=== PATIENT | male | born 1930 | race African-American/Black ===

== ENCOUNTER 2018-10-26 02:52 | Emergency (ER) | payer MEDICARE ==
[2018-10-26] MEDS ORDERED: Lidocaine 1% w/Epinephrine 1:100K 20 ML VIAL ONE (03:22)
== END 2018-10-26 04:17 | disposition home or self-care (01) ==
LOC: ERS 02:52
DX: K05.00 Acute gingivitis, plaque induced (principal); I10 Essential (primary) hypertension
CPT/HCPCS: J2001

== ENCOUNTER 2018-10-26 18:40 | Emergency (ER) | payer MEDICARE ==
[2018-10-26 20:32] LABS: #Eosinphils 0.2 thou/uL (0.0-0.7); #Lymphocytes 0.7 thou/uL (1.20-3.40); #Monocytes 0.7 thou/uL (0.11-0.59); #Neutrophils 3.5 thou/uL (1.40-6.50); %Basophils 0.9 % (0.0-1.0); %Eosinophils 4.4 % (0.0-10.0); %Lymphocytes 14.3 % (21.0-51.0); %Monocytes 13.7 % (0.0-10.0); %Neutrophils 66.8 % (42.0-75.0); Hemoglobin 12.1 g/dL (14.0-18.0); Mean Corpuscular HGB CONC 32.6 g/dL (32.0-36.0); Mean Corpuscular Hemoglobin 27.5 pg (27.0-31.0); Mean Corpuscular Volume 84.5 fL (78.0-98.0); Mean Platelet Volume 7.3 fL (7.4-10.4); Platelet Count 331 thou/uL (130-400); RBC Distribution Width 14.4 % (11.5-14.5); White Blood Cell (WBC) Count 5.2 thou/uL (4.8-10.8)
[2018-10-26 20:38] LABS: PTT 38.7 SEC (22.9-36.1); Prothrombin Time 13.7 SEC (12.0-14.7)
[2018-10-26 20:48] LABS: ALT (SGPT) 17 U/L (8-55); AST (SGOT) 18 U/L (5-34); Albumin 3.8 g/dL (3.4-4.8); Alkaline Phosphatase 105 U/L (40-150); Anion Gap 8 mmol/L (10-20); BUN (Urea Nitrogen) 12 mg/dL (8.4-25.7); Bilirubin, Total 0.3 mg/dL (0.2-1.2); Calc. Creatinine Clearance 0 mL/min (70-130); Calcium 9.6 mg/dL (7.8-10.44); Carbon Dioxide 29 mmol/L (23-31); Chloride 107 mmol/L (98-107); Estimated GFR-MDRD Greater than 90; Globulin 3.5 g/dL (2.4-3.5); Glucose 99 mg/dL (83-110); Potassium 4.8 mmol/L (3.5-5.1); Protein, Total 7.3 g/dL (5.8-8.1); Sodium 139 mmol/L (136-145)
[2018-10-26] MEDS ORDERED: Tranexamic Acid 1,000 MG/10 ML VIAL ONE (21:22)
[2018-10-26] MEDS ORDERED: Sterile Water 10 ML ONE (21:23)
== END 2018-10-26 22:10 | disposition home or self-care (01) ==
LOC: ERS 18:40
DX: K91.840 Postprocedural hemorrhage of a digestive system organ or structure following a digestive system procedure (principal); F19.10 Other psychoactive substance abuse, uncomplicated; I10 Essential (primary) hypertension
CPT/HCPCS: 36415; 80053; 85025; 85610; 85730; 99283; 99285; J2001